=== PATIENT | female | born 1960 | race Caucasian/White ===

== ENCOUNTER 2019-07-03 17:08 | Emergency (ER) | payer OTHER, SELFPAY ==
[2019-07-03 17:09] VITALS: BP 127/72; PULSE 100; RESP 13; TEMP 36.7; O2SAT 96; BMI 25.0
[2019-07-03 17:20] VITALS: O2SAT 96
--- NOTE | 2019-07-03 17:35 | RAD_ITS ---
STUDY: X-RAY CHEST REASON FOR EXAM: Female, 59 years old. Cough and fever. Wheezing. TECHNIQUE: Frontal and lateral views of the chest. COMPARISON: None. FINDINGS: The lungs are clear and expanded. There is no demonstrated pleural abnormality. Normal size heart. Normal mediastinum and glynn. Normal visualized pulmonary arteries. Normal visualized aortic arch and descending thoracic aorta. Normal visualized thoracic spine. Normal visualized ribs, clavicles, and shoulders. There is no demonstrated abnormality of the visualized soft tissue structures of the upper abdomen. RAD/Chest PA and Lateral IMPRESSION: Normal x-ray examination of the chest. Electronically Signed: Joe Altamirano MD at 18:06 EST , Service support ,
--- NOTE | 2019-07-03 17:39 | ED.VIS.GEN ---
History of Present Illness Chief Complaint: Cold Sx Informant: Patient Onset: Days - 7 to 8 days ago Context: Sudden Onset Timing: Continuous Quality: Congestion, cough, wheezing and subjective fever Location: Respiratory Current Severity: Mild Maximum Severity: Moderate Worsened by: Nothing specific Relieved by: Nothing Associated Symptoms: No other symptoms Narrative: Patient was seen yesterday at urgent care. Onset of illness 7 8 days ago. She combines of congestion, cough, wheezing with subjective fever. She is a smoker of 1 pack/day. She continues to smoke. She did receive her influenza vaccine. She denies myalgias arthralgias. She denies pleurisy. She has no other complaints. Prior similar symptoms: Yes Recent Illness/Hospitalization: Yes - Past Medical History (1) Tobacco use Status: Acute Past Medical History - Allergies and Home Meds Allergies/Adverse Reactions: Allergies No Known Allergies Allergy (Verified 07/03/19 17:12) Primary Care Physician: Jd Lockwood DO [Primary Care Provider] - Prior records reviewed: Yes Lives: Alone Smoking Status: Heavy Smoker (>10/day) Alcohol: Rare Drugs: None Review of Systems General: Reports: Fever, Malaise, Subjective. Denies: Chills, Sweats Eyes: Denies: Visual changes - bilaterally, Blurred Vision - bilaterally ENT: Reports: Rhinorrhea. Denies: Bilateral ear pain, Sore throat Cardiovascular: Denies: Chest pain, Palpitations Respiratory: Reports: Dyspnea, Cough. Denies: Sputum, Dyspnea on exertion, Orthopnea, Paroxysmal nocturnal dyspnea Gastrointestinal: Denies: Abdominal pain, Nausea, Vomiting, Diarrhea, Melena, Hematochezia Genitourinary: Denies: Dysuria, Hematuria, Frequency Musculoskeletal: Denies: Myalgias, Arthralgias, Neck pain, Back pain, Swelling, Extremity Pain, -, - Skin: Denies: Rash, Wounds Neurological: Denies: Headache, Weakness, Parasthesia, Numbness, -, - Allergy: Denies: Uticaria, Swelling of the mouth Physical Exam Vital Signs/Narrative: Vital Signs Temp Pulse Resp BP Pulse Ox 07/03/19 17:09 98.0 F 100 13 127/72 H 96 Inital Vital Signs reviewed: Yes General: Well nourished, Well developed, No Acute Distress Head: Normocephalic, Atraumatic Eyes: Perrl, EOMI. Negative for: Pale conjunctiva, Scleral icterus ENT: Moist mucous membranes, No rhinorrhea, TM's clear Neck: Supple, Nontender Cardiovascular: Negative for: Tachycardia Respiratory: No distress, Rales - Rales right lower lobe posteriorly. There is no egophony. Abdomen: Soft, Nontender, Nondistended, Normal bowel sounds Back: Nontender, Normal Inspection Extremities: Nontender, No edema. Negative for: Calf Tenderness Skin: Normal color, No rash Neurological: Alert, Oriented x3, Cranial nerves II-XII grossly intact, Normal Strength, Normal Sensation Psychological: Normal affect, Normal Mood Diagnostic/Tx/Re-eval Chest X-Ray - ED: 2 View, Normal, Heart, Mediastinum, Bony Structures, No Acute Disease, Chronic Changes, - - Tray interpreted by me at 1750. 07/03/19 17:35 Chest PA and Lateral [RAD] Stat - Rhythm Strip Rhythm Strip: Sinus Rhythm Rate: 90 Ectopy: None - Medical Decision Making Since patient has unilateral symptoms is a smoker will obtain chest x-ray to look for evidence of pneumonia versus bronchitis. Chest x-ray revealed no evidence of pneumonia. Patient was instructed to take the prednisone she was prescribed, continue using the inhaler and her antibiotic was changed from azithromycin to doxycycline ED Disposition - Plan for ED Patient: Diagnosis: Bronchitis with bronchospasm Instructions: BRONCHITIS with Wheezing (Adult) Prescriptions: Doxycycline [Vibramycin] 100 mg PO BID #14 cap Prescription Printed Referrals: Jd Lockwood DO [Primary Care Provider] - 1 Week if not improving Additional Instructions: Discontinue taking the azithromycin. It is in your best interest to stop smoking. Because you are a smoker you may have a cough for 4 weeks. Take the doxycycline until gone.
[2019-07-03 18:02] VITALS: PULSE 94; RESP 17; O2SAT 96
== END 2019-07-03 18:03 | disposition home or self-care (01) ==
LOC: ED 17:50
PROVIDERS: Emergency Provider Emergency Medicine; Family Provider Student in an Organized Health Care Education/Training Program; PCP Student in an Organized Health Care Education/Training Program
DX: J40 Bronchitis, not specified as acute or chronic (principal); F17.200 Nicotine dependence, unspecified, uncomplicated
CPT/HCPCS: 71046; 99282

== ENCOUNTER 2025-04-15 08:49 | Day surgery (SDC) | payer OTHER, SELFPAY ==
--- NOTE | 2025-04-11 06:39 | EKG12_ITS ---
Test Reason : PREOP Blood Pressure : */* mmHG Vent. Rate : 64 BPM Atrial Rate : 64 BPM P-R Int : 142 ms QRS Dur : 88 ms QT Int : 408 ms P-R-T Axes : 52 32 57 degrees QTcB Int : 420 ms Normal sinus rhythm Normal ECG Confirmed by WAYNE BRIGGS, GAYLE ([id number]), international editorial producer JEN MOORE ([id number]) on 04/12/2025 6:08:06 AM Referred By: Kate Buchanan Confirmed By: GAYLE BLACK MD
--- NOTE | 2025-04-12 13:41 | HP.PCM_ITS ---
History and Physical Date of Admission: 04/15/25 HPI: The patient is a 64 year old female presenting for pre-operative visit. She is scheduled for laparoscopic BSO, EUA, pelvic washings, for pelvic pain right ovarian cyst and left paraovarian cyst on 04/15/25. Procedure discussed along with risks, benefits and complications. Other alternatives discussed for management. Consent form signed? Yes. ? ? 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 ? ? PAST SURGICAL HISTORY PAST SURGICAL HISTORYProcedureLateralityDate?COL1A1/COL1A2 DNA SEQUENCING???COLONOSCOPY FLX DX W/COLLJ SPEC WHEN PFRMD?07/19/2020?Colonoscopy ?ESOPHAGOGASTRODUODENOSCOPY TRANSORAL DIAGNOSTIC?07/19/2020?EGD?PAST SURGICAL HISTORY OF???heart cath?REPAIR OF FEMUR [id number]?secondary to OI ?TONSILLECTOMY PRIMARY/SECONDARY <AGE 12???Tonsillectomy ? ? ? CURRENT MEDICATIONS Current Outpatient MedicationsMedicationSigDispenseRefill?alendronate (FOSAMAX) 70 mg tabletTake 1 tablet by mouth one time a week. in the AM with glass of water on empty stomach. Do not take anything else by mouth or lie down for 30 min12 tablet3?meloxicam (MOBIC) 7.5 mg tabletTAKE 1 TABLET BY MOUTH EVERY DAY30 tablet2?desonide (DESOWEN) 0.05 % ointmentapply to red and rough areas twice daily for 2 weeks, daily for 2 weeks, then twice weekly to eczema prone areas for maintenance.60 g0?metoprolol succinate ER (TOPROL XL) 25 mg 24 hr tabletTake 1 tablet by mouth once daily.90 tablet3?No current facility-administered m edications for this visit. ? ? ALLERGIES: Patient has no known allergies. ? PERSONAL HISTORY: [SOCIAL HISTORY] [SOCIAL HISTORY] Social History Tobacco Use ? Smoking status: Former ? ? Current packs/day: 1.00 ? ? Average packs/day: 1 pack/day for 20.0 years (20.0 ttl pk-yrs) ? ? Types: Cigarettes ? Smokeless tobacco: Never ? Tobacco comments: ? ? Quit smoking in october 2019 Vaping Use ? Vaping status: Never Used Substance Use Topics ? Alcohol use: Not Currently ? Drug use: Never ? FAMILY HISTORY: FAMILY HISTORY FAMILY HISTORY ProblemRelationAge of Onset?CancerMother?? CLL ?HypertensionMother??HyperlipidemiaMother??CancerFather?? Lung ?HypertensionFather??HypertensionSister??Rheumatologic diseaseSister?? RA ?CancerMaternal Grandmother?? Lymphoma?other (Other)Son?? OI?other (Other)Son?? OI ? ? REVIEW OF SYMPTOMS: GENERAL: denies fevers or chills ENDOCRINOLOGY: has not been on steroids Cardiology : denies palpitations or chest pain Respiratory: denies SOB or cough Hematology: denies history of prolonged bleeding or easy bruising or VTE Allergy: Denies history of personal or family history of allergy to anesthesia ? PHYSICAL EXAMINATION: ? VITALS: Blood pressure 108/76, height 142.2 cm (4' 8), weight 58.1 kg (128 lb). ? GENERAL: The patient is well nourished, well hydrated in no acute distress. , The patient is oriented to time, place, and person. NECK: Supple. No lynphadenopathy, normal thyroid, no thyromegaly. LUNGS: Clear to auscultation bilaterally. no wheezes, rhonchi or rales HEART: Regular rate and rhythm, Normal heart sounds, and No murmurs or gallops ? ? IMPRESSION: right ovarian cyst, pelvic pain, left paraovarian cyst ? PLAN: The risks/benefits/alternatives and personal involved for the planned laparosocpic BSO, EUA, pelvic washings were reviewed with the patient. Her questions were answered to her satisfaction and she desires to proceed. Consent was signed. I reviewed with her postop instructions and expectations. ? ? I have reviewed and updated past medical and surgical history, medications and allergies Assessment & Plan Assessment/Plan (1) Pelvic pain in female: (2) Right ovarian cyst: (3) Para-ovarian cyst:
--- NOTE | 2025-04-13 16:32 | PAT.ANESEVAL ---
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 When Was Last Pacemaker Check QUESTION #4 FULL TEXT: You/Your Family Experience fever (hyperthermia) with Anesthesia Last Oral Intake Last Oral intake: Last Oral Intake NPO since Meds taken in AM with sips of water? Meds patient instructed to take am of surgery PONV PONV - molder machine tender: PONV - molder machine tender Female Yes 04/08/25 13:50 HX of Motion Sickness No 04/08/25 13:50 HX of N/V After Surgery No 04/08/25 13:50 Non-Smoker Yes 04/08/25 13:50 Duration of Surgery greater No 04/08/25 13:50 than 60 minutes Number of Risk Factors 2 04/08/25 13:50 PONV Score Moderate Risk 04/08/25 13:50 Respiratory Assessment Respiratory Assessment - molder machine tender: Respiratory Tract Infection Hx - molder machine tender Hx Respiratory Tract Infection No 04/08/25 13:50 STOP Sleep Apnea STOP Sleep Apnea - molder machine tender: STOP Sleep Apnea - molder machine tender Hx Hypertension No 04/08/25 13:50 Hx Sleep Apnea No 04/08/25 13:50 CPAP BIPAP Do you snore loudly (louder No 04/08/25 13:50 than talking or can be heard Do you often feel tired/ No 04/08/25 13:50 fatigued/ sleepy during daytime? Has anyone observed you stop No 04/08/25 13:50 breathing during sleep? STOP Results Negative 04/08/25 13:50 QUESTION #5 FULL TEXT : Do you snore loudly (louder than talking or can be heard through closed doors)? 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 Specify any problems Hx of Preganancy in last 3 N/A 04/08/25 13:50 Months Nurse Filling Out Transfusion NBUCHER 04/08/25 13:50 & Questions: Date: 04/08/25 04/08/25 13:50 Time: 13:51 04/08/25 13:50 Patient unable to answer at this time (ie. confused, unrespo /Reproduction History /Reproductive History - molder machine tender: /Reproductive Hx- molder machine tender Hx Now No 04/08/25 13:50 Gestational Age (in weeks): EDC: Hx Hx Para Hx Section SAB No 04/08/25 13:50 [facility] Medical History (Updated 04/12/25 @ 13:[address] Kate Buchanan MD) Wears glasses Gastric reflux Former smoker Cardiology follow-up encounter History of echocardiogram History of stress test History of supraventricular tachycardia History of femur fracture Home Medications ?Medication ?Instructions ?Recorded ?Last Taken ?Type calcium carbonate-vitamin D3 500 1 cap PO DAILY 04/08/25 Unknown History mg (1,250 mg)-50 unit capsule Allergy/AdvReac Type Severity Reaction Status Date / Time No Known Allergies Allergy Verified 04/08/25 13:49 Surgical History History of esophagogastroduodenoscopy (EGD) History of colonoscopy History of tonsillectomy Social History Smoking Status: Former smoker Audit: Pertinent Findings Pertinent Findings EKG Perinent findings: April 11, 2025. Normal sinus rhythm. Stress test pertinent findings: 01/08/2021. Sustained V. tach noted during stress. Echo (EF%) pertinent findings: 01/08/2021. EF is 60%. Heart catheterization pertinent findings: 01/08/2021. Angiographically normal coronary arteries. Normal left ventricular filling pressures. Consult pertinent findings: 01/09/2021. Dr. Springer. 1. Sustained V. tach during stress test. This is consistent with right ventricular outflow tract ventricular tachycardia. Patient is being placed on beta-ramiro. It is recommended she do a treadmill stress test next week on the beta-ramiro. If she is free of arrhythmias on exertion then she is recommended to do a cardiac MRI to rule out arrhythmogenic right ventricular cardiomyopathy. Blood pressures are normal. Plan to discharge home on Toprol-XL. 2. Previous syncope-1 occurrence in the 1980s. No recurrence. Recommendation Anesthesia Recommendation Anesthesia recommendation: F/U recommended (Last cardiac recommendation was for patient to get a stress test on beta-blockers. Did she ever get this done and can we get the results?)
--- NOTE | 2025-04-14 10:20 | PAT.ANE_ITS ---
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 When Was Last Pacemaker Check QUESTION #4 FULL TEXT: You/Your Family Experience fever (hyperthermia) with Anesthesia Last Oral Intake Last Oral intake: Last Oral Intake NPO since Meds taken in AM with sips of water? Meds patient instructed to take am of surgery PONV PONV - financial sales professional: PONV - financial sales professional Female Yes 04/08/25 13:50 HX of Motion Sickness No 04/08/25 13:50 HX of N/V After Surgery No 04/08/25 13:50 Non-Smoker Yes 04/08/25 13:50 Duration of Surgery greater No 04/08/25 13:50 than 60 minutes Number of Risk Factors 2 04/08/25 13:50 PONV Score Moderate Risk 04/08/25 13:50 Respiratory Assessment Respiratory Assessment - financial sales professional: Respiratory Tract Infection Hx - financial sales professional Hx Respiratory Tract Infection No 04/08/25 13:50 STOP Sleep Apnea STOP Sleep Apnea - financial sales professional: STOP Sleep Apnea - financial sales professional Hx Hypertension No 04/08/25 13:50 Hx Sleep Apnea No 04/08/25 13:50 CPAP BIPAP Do you snore loudly (louder No 04/08/25 13:50 than talking or can be heard Do you often feel tired/ No 04/08/25 13:50 fatigued/ sleepy during daytime? Has anyone observed you stop No 04/08/25 13:50 breathing during sleep? STOP Results Negative 04/08/25 13:50 QUESTION #5 FULL TEXT : Do you snore loudly (louder than talking or can be heard through closed doors)? 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 Specify any problems Hx of Preganancy in last 3 N/A 04/08/25 13:50 Months Nurse Filling Out Transfusion NBUCHER 04/08/25 13:50 & Questions: Date: 04/08/25 04/08/25 13:50 Time: 13:51 04/08/25 13:50 Patient unable to answer at this time (ie. confused, unrespo /Reproduction History /Reproductive History - financial sales professional: /Reproductive Hx- financial sales professional Hx Now No 04/08/25 13:50 Gestational Age (in weeks): EDC: Hx Hx Para Hx Section SAB No 04/08/25 13:50 [facility] Medical History (Updated 04/12/25 @ 13:[address] Kate Buchanan MD) Wears glasses Gastric reflux Former smoker Cardiology follow-up encounter History of echocardiogram History of stress test History of supraventricular tachycardia History of femur fracture Home Medications ?Medication ?Instructions ?Recorded ?Last Taken ?Type calcium carbonate-vitamin D3 500 1 cap PO DAILY Unknown History mg (1,250 mg)-50 unit capsule Allergy/AdvReac Type Severity Reaction Status Date / Time No Known Allergies Allergy Verified 04/08/25 13:49 Surgical History History of esophagogastroduodenoscopy (EGD) History of colonoscopy History of tonsillectomy Social History Smoking Status: Former smoker Audit: Pertinent Findings HISTORY of Pertinent Findings History of Pertinent Findings: EKG Pertinent Findings EKG Perinent findings April 11, 2025. Normal 04/13/25 16:33 sinus rhythm. Stress Test Pertinent Findings Stress test pertinent findings 01/08/2021. Sustained V. 04/13/25 16:42 tach noted during stress. Echo Pertinent Findings Echo (EF%) pertinent findings 01/08/2021. EF is 60%. 04/13/25 16:42 Heart Catheterization Pertinent Findings Heart catheterization 01/08/2021. Angiographically 04/13/25 16:48 pertinent findings normal coronary arteries. Normal left ventricular filling pressures. Consult Pertinent Findings Consult pertinent findings 01/09/2021. Dr. Springer. 04/13/25 16:54 1. Sustained V. tach during stress test. This is consistent with right ventricular outflow tract ventricular tachycardia. Patient is being placed on beta-ramiro. It is recommended she do a treadmill stress test next week on the beta-ramiro. If she is free of arrhythmias on exertion then she is recommended to do a cardiac MRI to rule out arrhythmogenic right ventricular cardiomyopathy. Blood pressures are normal. Plan to discharge home on Toprol-XL. 2. Previous syncope-1 occurrence in the . No recurrence. Pertinent Findings Stress test pertinent findings: Patient was seen at [facility] after her episode of V. tach and it was recommended that she not get a stress test because it would not show further findings. She has good functional capacity and she is scheduled for a low to medium risk procedure. Recommendation Anesthesia Recommendation Anesthesia recommendation: OPTIMIZED for anesthesia
[2025-04-15] VITALS (12 sets, daily range): BP systolic 95–151; BP diastolic 54–81; PULSE 60–78; RESP 16–18; TEMP 36.1–36.8; O2SAT 93–100; BMI 27.1
--- NOTE | 2025-04-15 | FLU_PTH ---
PATIENT: ADELINA RIGGINS LOC: [facility] [place] U#:[id number] AGE/SX: 64/F ROOM: RE04/15/[address]: Dr. Kate Buchanan MD : 1960 BED: DIS: 04/15/2025 SPEC #: [id number] RECD: 04/15/25 11:04 STATUS: FAB REDinorah #: [id number] APPLE: 04/15/25 00:[address]: Kate Buchanan DEPT: CYTOLOGY RECD BY: Danny Gagnon ENTERED: 04/15/25 13:47 SP TYPE: Fluid OTHR DR: Dr. Jd Lockwood, DO Tissues: A - Pelvis, NOS Procedures: Immunohistochemical Stains Special Stain Group II Surgery Specimen Level IV Cytospin Fluid IHC Stain ADDITIONAL HEADER OPERATION: Not noted PRE-OP DIAGNOSIS: TISSUE SUBMITTED: A- Pelvic washings for cytology DIAGNOSIS CYTOLOGY A. Pelvic washing (cytospin, cellblock): - No malignant cells identified. - Macrophages/histiocytes present (CD68+). - IHC for calretinin and CAM5.2 support the diagnosis. CYTOLOGY STUDY Slides are reviewed. ?All matched controls reacted appropriately. These tests were developed and their performance characteristics determined by [facility]. They may not have been cleared or approved by the U.S. Food and Drug Administration. The FDA has determined that such clearance or approval is not necessary.? The above immunohistochemical?markers and/or special stains have been reviewed by the Pathologist. CYTOLOGY GROSS A. Received is 50 ml of [id number] fluid labeled with the patient's name and and designated per the requisition as Pelvic washings. Submitted for cytology and cell block preparation. Mr 04/15/2025 CPT: 70332 ,[id number]
[2025-04-15] MEDS: Lactated Ringers 1,000 ML 15 ML IV (09:24)
--- NOTE | 2025-04-15 09:51 | PCM.PRE.AN2 ---
ASA Classification* ASA Classification ASA Classification: 2 Assessment & Plan Anesthesia* Anesthesia Assessment Anesthesia Assessment: Discussed sedation and/or anesthesia options, risks, benefits, and alternatives with patient/parents/legal guardian/POA. Questions invited. The patient/parents/legal guardian/POA seems to understand and agrees to proceed with anesthesia plan. Reviewed the physical assessment, medical history, allergy history and patient home medications list prior to surgery/procedure/anesthetic and documented any changes. Performed airway and anesthesia risk assessments. Anesthesia Type Anesthesia Type: General History Source History Obtained from:: Patient and Chart Anesthesia Focused Assessment* Temperature: 98.3 F Pulse Rate: 70 Blood Pressure: 114/74 Respiratory Rate: 16 Pulse Ox: 100 Oxygen Delivery Method: Room Air Airway Assessment Mouth opens: >3 cm Mallampati Score: I Teeth Condition: Caps/Crowns (Patient has a crown left lower molar. 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 When Was Last Pacemaker Check QUESTION #4 FULL TEXT: You/Your Family Experience fever (hyperthermia) with Anesthesia Last Oral Intake Last Oral intake: Last Oral Intake NPO since 18:00 04/15/25 09:19 Meds taken in AM with sips of No 04/15/25 09:19 water? Meds patient instructed to take am of surgery PONV PONV - service unit operator oil well: PONV - service unit operator oil well Female Yes 04/08/25 13:50 HX of Motion Sickness No 04/08/25 13:50 HX of N/V After Surgery No 04/08/25 13:50 Non-Smoker Yes 04/08/25 13:50 Duration of Surgery greater No 04/08/25 13:50 than 60 minutes Number of Risk Factors 2 04/08/25 13:50 PONV Score Moderate Risk 04/08/25 13:50 Height & Weight Height & Weight: Anesthesia: Height & Weight Height 4 ft 9 in 04/15/25 09:19 Weight: 57 kg 04/15/25 09:19 Body Mass Index (BMI) 27.1 04/15/25 09:19 Respiratory Assessment Respiratory Assessment - service unit operator oil well: Respiratory Tract Infection Hx - service unit operator oil well Hx Respiratory Tract Infection No 04/08/25 13:50 STOP Sleep Apnea STOP Sleep Apnea - service unit operator oil well: STOP Sleep Apnea - service unit operator oil well Hx Hypertension No 04/08/25 13:50 Hx Sleep Apnea No 04/08/25 13:50 CPAP BIPAP Do you snore loudly (louder No 04/08/25 13:50 than talking or can be heard Do you often feel tired/ No 04/08/25 13:50 fatigued/ sleepy during daytime? Has anyone observed you stop No 04/08/25 13:50 breathing during sleep? STOP Results Negative 04/08/25 13:50 QUESTION #5 FULL TEXT : Do you snore loudly (louder than talking or can be heard through closed doors)? Tobacco Use History Tobacco Use History - service unit operator oil well: Tobacco Use History - service unit operator oil well Tobacco Use Smoking Status Former smoker 04/08/25 13:50 Hx Tobacco Use No 04/08/25 13:50 Years Smoking Packs Smoked per Day Smoking Cessation Date was No - quit smoking greater 04/08/25 13:50 within the last 15 years than 15 years ago Hx Smoking Cessation Date 08/25/19 04/08/25 13:50 Hx Smoking Cessation Counseling Hematologic Medial History Hematologic Hx - service unit operator oil well: Hematologic Medical Hx - possum trapper Hx of Blood Transfusion No 04/08/25 13:50 Hx of Transfusion in last 3 No 04/08/25 13:50 Months Date of Last Transfusion (if within last 3 months) Ever experience any problems No 04/08/25 13:50 with transfusion(s)? Specify any problems Hx of Preganancy in last 3 N/A 04/08/25 13:50 Months Nurse Filling Out Transfusion NBUCHER 04/08/25 13:50 & Questions: Date: 04/08/25 04/08/25 13:50 Time: 13:51 04/08/25 13:50 Patient unable to answer at this time (ie. confused, unrespo /Reproduction History /Reproductive History - service unit operator oil well: /Reproductive Hx- service unit operator oil well Hx Now No 04/08/25 13:50 Gestational Age (in weeks): EDC: Hx Hx Para Hx Section SAB No 04/08/25 13:50 Active Medications Active Medications: Current Medications Generic Name Dose Route Start Last Admin Trade Name Freq PRN Reason Stop Dose Admin Lactated Ringer's 1,000 mls @ 15 mls/hr 04/15/25 09:00 04/15/25 09:24 IV 15 mls/hr .Q48H LUIS ALBERTO Administration PFSH Medical History Wears glasses Gastric reflux Former smoker Cardiology follow-up encounter History of echocardiogram History of stress test History of supraventricular tachycardia History of femur fracture Home Medications ?Medication ?Instructions ?Recorded ?Last Taken ?Type calcium carbonate-vitamin D3 500 1 cap PO DAILY 04/08/25 Unknown History mg (1,250 mg)-50 unit capsule metoprolol succinate 25 mg 25 mg PO DAILY 04/15/25 04/14/25 16:00 History tablet,extended release 24 hr Allergy/AdvReac Type Severity Reaction Status Date / Time No Known Allergies Allergy Verified 04/15/25 09:18 Surgical History History of esophagogastroduodenoscopy (EGD) History of colonoscopy History of tonsillectomy Social History Smoking Status: Former smoker Review of Systems (Anesthesia) ROS Narrative System reviewed and no additional complaints, except as documented.
--- NOTE | 2025-04-15 10:13 | PCM.DC ---
Discharge Instructions DC O2, CPAP, BIPAP needs Home O2 Discharge instructions: No Dressing / Incision May shower in (days): 1 May resume sexual activity in: 1-2 weeks Lifting Restrictions: 15 lbs x 2 weeks Additional Activity Instructions:: Ambulate often the next week after surgery. You can drive when you feel up to it and are not on pain medication. Dressing / Incision Call your doctor if your incision/area has: Continuous Slow Oozing, Sudden Increased Bleeding, Increased Pain/ Swelling, Increased Redness and Foul Smelling Discharge Call your doctor if you observe: Fever of 101 or Higher Cleanse incision/area with: Soap & Water (Your incisions have skin glue, it can get wet. Please let if on for 10-14 days or until it falls off. ) Follow Up Care Please Follow Up With: Kate Buchanan MD When: Call [phone] for follow-up appointment. Test Results: Test results from this visit will be discussed in further detail at your follow-up appointment, if applicable. Discharge Plan Admission Primary Reason for Your Visit: Laparoscopic bilateral tube and ovary removal Attending Provider: Kate Buchanan Primary Care Provider: Jd Lockwood Instructions Print Language: Slovenian Discharge Orders/Prescriptions Prescriptions: New oxycodone 5 mg tablet 5 mg PO Q8H PRN (Reason: severe pain) 5 Days Qty: 6 0RF Continued calcium carbonate-vitamin D3 500 mg(1,250mg) -50 unit capsule 1 cap PO DAILY metoprolol succinate 25 mg tablet extended release 24 hr 25 mg PO DAILY Referrals / Follow Up: Jd Lockwood DO [Primary Care Provider] - Disposition Disposition (needs filled in before D/C Order can be placed): Home, Self Care
--- NOTE | 2025-04-15 10:30 | OV_PTH ---
PATIENT: ADELINA RIGGINS [place] [facility] [id number] AGE/SX: 64/F ROOM: RE04/15/[address]: Dr. Kate Buchanan MD : 1960 BED: DIS: 04/15/2025 SPEC #: [id number] RECD: 04/15/25 12:30 STATUS: FAB REDinorah #: [id number] APPLE: 04/15/25 10:[address]: Kate Buchanan DEPT: SURGICAL PATHOLOGY RECD BY: Danny Gagnon ENTERED: 04/15/25 12:43 SP TYPE: OVARY OTHR DR: Dr. Jd Lockwood, Tissues: A - Right ovary B - Left ovary Procedures: Surgery Specimen Level V HEADER OPERATION: Laparoscopic bilateral salpingo-oopherectomy, pelvic washings PRE-OP DIAGNOSIS: Pelvic pain in female, right ovarian cyst, para-ovarian cyst TISSUE SUBMITTED: A- Right ovary and tube, B- Left ovary and tube, paratubal cyst MICROSCOPIC DIAGNOSIS A. Right ovary and fallopian tube, salpingo-oophorectomy: - Ovary with serous cystadenoma and benign fallopian tube - see Comment. B. 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 - Benign fallopian tube. COMMENT Selected slides/images were reviewed in intradepartmental consultation by Dr Charlie Lynn (FAMILY DEVELOPMENT SPECIALIST pathology division, [facility]). MICROSCOPIC DESCRIPTION Slides are reviewed. GROSS DESCRIPTION Received in 2 formalin containers labeled with the patient's name and date of . Designated as: A. Right ovary and tube is a 4.5 x 0.3 cm han-pink disrupted fallopian tube, devoid of fimbria and an 8 g, 3.4 x 3.0 x 2.7 cm predominantly cystic, apparent ovary. Sectioning reveals clear to straw-colored serous fluid within the cysts and minimal, possible ovarian parenchyma. Also received within the container is a 2.0 x 1.4 x 0.6 cm apparent cyst wall. Gas Welding Equipment Mechanic sections are submitted in 3 cassettes as follows: A1: Fallopian tubeA2: Possible ovary with cystA3: Possible ovary with cyst, and separate apparent cyst wall B. Left ovary and tube, paratubal cyst is an 18.5 cm intact cyst with possible ovary, 3.8 x 3.2 x 2.9 cm with an attached portion of han-pink fallopian tube devoid of fimbria, 3.6 x 0.3 cm. Sectioning reveals clear serous fluid within the cyst and focally fibrotic cyst wall; minimal, possible ovarian parenchyma is identified. Also received within the container is a separate, intact cyst blood-tinged serous fluid, 1.4 x 1.3 x 0.7 cm. Gas Welding Equipment Mechanic sections are submitted in 3 cassettes as follows:B1: Fallopian tubeB2: Possible ovary and cystB3: Separate cyst with hemorrhagic serous fluid DE 04/15/2025 A. The remainder of the specimen is entirely submitted in cassettes A4-A8, following histopathologic review.B. The remainder of the specimen is entirely submitted in cassettes B4-B9, following histopathologic review. DE 04/26/2025 CPT:[id number]
[2025-04-15] MEDS: Lidocaine 1% (5 ml sdv) 5 ML Vial 3.5 ML IV (10:42)
[2025-04-15] MEDS: fentaNYL 100 MCG/2 ML Ampul IV (11:02)
--- NOTE | 2025-04-15 11:57 | OP.PCM_ITS ---
Problems Associated Problem List Diagnoses (1) Para-ovarian cyst: (2) Right ovarian cyst: (3) Pelvic pain in female: Operative Report (Standard) Operative Information Date of Procedure: 04/15/25 Pre-Operative Diagnosis: pelvic pain, ovarian cyst, paratubal cyst Post-Operative Diagnosis: same Surgery/Procedure Performed: Laparoscopic bilateral salpingoophorectomy with removal of paratubal cyst and pelvic washings customs and border protection inspector: Yes Director Shopper Marketing: Emerson Mahoney Tasks completed by medical billing assistant: Closing, Trocar and Retracting Additional salon assistant?: No Type of Anesthesia: General RN Documented Start/Stop Times: Operation Date: 04/15/25 10:30 Case Time Into Pre-Op 04/15/25 08:57 Out of Pre-Op 04/15/25 10:32 Anesthesia Start 04/15/25 10:35 Into Room 04/15/25 10:35 Procedure Start 04/15/25 10:57 Procedure Start Time: 10:57 Procedure Stop Time: 11:56 Select all DRAINS/GRAFTS/IMPLANTS that apply: None Special Medications: none Estimated Blood Loss: 10 Fluids Replaced: 800 cc LR Specimen collected: Yes Description of specimen(s) removed: pelvic washings, willis lteral tubes and ovaries, paratubal cyst left side Description of surgery: The patient was taken to the operating room where she was prepped and draped in the dorsolithotomy position. A weighted speculum was placed in the vagina and the anterior lip of the cervix was grasped with a tenaculum. The Merlyn uterine manipulator was placed and the remainder of the instruments were removed from the vagina. Attention was turned to the abdomen. All port sites were infiltrated with 0.5% Marcaine before skin incisions were made. A 5 mm intraumbilical incision was m zackary. The anterior abdominal wall was tented up with 2 towel clamps while a 5 mm blade less trocar and sleeve were directly inserted. Intraperitoneal placement was confirmed with the laparoscope. The pneumoperitoneum was created and the underlying abdominal contents were intact. The patient was placed in Trendelenburg. 5mm right and left lower quadrant ports were placed under direct visualization lateral to the inferior epigastric vessels. The bowel was swept away and the above findings were noted. Both ureters right identified and seen peristalsing below the infundibulopelvic ligaments. The right infundibulopelvic ligament was clamped, sealed and transected with the LigaSure device. The antimesenteric portions of the tube were clamped, sealed and transected. The utero-ovarian ligaments were clamped sealed and transected with the LigaSure device. Some of the filmy adhesions were removed with blunt dissection. On the left side I had to take down some of the adhesions of the ovary to the pelvic sidewall to free it up and free the tube out. The infundibulopelvic ligament was then clamped sealed and transected with the LigaSure device. The utero-ovarian ligament was clamped sealed and transected with the LigaSure device as was the rest of the antimesenteric portion of the tube. The paratubal cyst was noted to be adhered somewhat to the pelvic sidewall and this was taken down with the LigaSure device and then it was peeled off the epiploica with blunt dissection. All the pedicles were hemostatic. The specimens were placed in separate 5 mm bags and removed through the umbilical incision which was stretched. The pedicles were again examined and found to be hemostatic. Hemablast was placed over the pedicles The the umbilical port fascia was closed with 0 Vicryl suture with a [id number]. The lateral ports were removed under direct visualization and no active bleeding was noted. The pneumoperitoneum was released. The skin incisions were closed with Monocryl suture in a subcuticular fashion and skin glue . The vaginal instruments were removed and the vaginal sweep was completed by me. The procedure was performed by me with assistance other than as dictated above. All sponge and needle counts were correct and the patient was taken to the recovery room in stable condition. Surgical Findings: left ovarian cyst and paratubal cyst, atrophic right ovary, large anterior lateral fibroid off the left side of the uterus, some adhesions of ovaries and tubes to pelvic sidewalls, the paratubal cysts off left adhered slightly to epiploioca of the rectosigmoid colon cysts Complications Complications: No Admit VTE Documentation VTE Present on Admission: No VTE Mechan Device Prophylaxis: SCD's VTE Pharm Prophylaxis ordered?: No
--- NOTE | 2025-04-15 12:04 | PCM.POST.ANE ---
Anesthesia: Postop Eval I Current Vital Signs Temperature: 97.1 F Pulse Rate: 73 Blood Pressure: 151/81 Respiratory Rate: 18 Pulse Ox: 100 Assessment Airway patent: Yes Spontaneous unlabored respirations: Yes nausea: No Vomiting: No Anesthesia Complication: No Fluid Hydration Crystalloid volume administer (ml): 800 Total IV fluid infused: 800 Progress Note Anesthesia document: Postop Eval 1 completed: Yes
[2025-04-15 12:30] LABS: Cytology, Body Fluid / CSF SEE PATHOLOGY REPORT
--- NOTE | 2025-04-15 16:14 | POSTOPAN2_ITS ---
Anesthesia Postop Eval I Sum Postop Eval Completion status Anesthesia document: Postop Eval 1 completed: Yes Anesthesia Postop Eval I Summary Anesthesia Postop Eval I Summary: Anesthesia Postop Eval I: Assessment Summary Airway patent Yes 04/15/25 12:04 ELECTRICAL PARTS RECONDITIONER.CSIR Spontaneous unlabored Yes 04/15/25 12:04 ELECTRICAL PARTS RECONDITIONER.CSIR respirations Mental status nausea No 04/15/25 12:04 ELECTRICAL PARTS RECONDITIONER.CSIR Vomiting No 04/15/25 12:04 ELECTRICAL PARTS RECONDITIONER.CSIR Anesthesia Postop Eval I: Fluid Summary Crystalloid volume administer 800 04/15/25 12:04 ELECTRICAL PARTS RECONDITIONER.CSIR (ml) Colloids volume administered ( ml) Blood Product volume administered (ml) Total IV fluid infused 800 04/15/25 12:04 ELECTRICAL PARTS RECONDITIONER.CSIR Anesthesia Postop Eval I: Summary Notes Anesthesia Complication No 04/15/25 12:04 ELECTRICAL PARTS RECONDITIONER.CSIR Anesthesia Complication Comment: Post-operative progress note Anesthesia: Postop Eval II Evaluation Mental status: Awake and Calm Pain Level: 2 nausea: No Vomiting: No Complications Anesthesia Complication: No
--- NOTE | 2025-04-15 16:14 | PCM.POSTANE2 ---
Anesthesia Postop Eval I Sum Postop Eval Completion status Anesthesia document: Postop Eval 1 completed: Yes Anesthesia Postop Eval I Summary Anesthesia Postop Eval I Summary: Anesthesia Postop Eval I: Assessment Summary Airway patent Yes 04/15/25 12:04 SEMICONDUCTOR TECHNICIAN.CSIR Spontaneous unlabored Yes 04/15/25 12:04 SEMICONDUCTOR TECHNICIAN.CSIR respirations Mental status nausea No 04/15/25 12:04 SEMICONDUCTOR TECHNICIAN.CSIR Vomiting No 04/15/25 12:04 SEMICONDUCTOR TECHNICIAN.CSIR Anesthesia Postop Eval I: Fluid Summary Crystalloid volume administer 800 04/15/25 12:04 SEMICONDUCTOR TECHNICIAN.CSIR (ml) Colloids volume administered ( ml) Blood Product volume administered (ml) Total IV fluid infused 800 04/15/25 12:04 SEMICONDUCTOR TECHNICIAN.CSIR Anesthesia Postop Eval I: Summary Notes Anesthesia Complication No 04/15/25 12:04 SEMICONDUCTOR TECHNICIAN.CSIR Anesthesia Complication Comment: Post-operative progress note Anesthesia: Postop Eval II Evaluation Mental status: Awake and Calm Pain Level: 2 nausea: No Vomiting: No Complications Anesthesia Complication: No
== END 2025-04-15 14:43 | disposition home or self-care (01) ==
LOC: SDC 08:51 → AC 08:51
PROVIDERS: PCP Student in an Organized Health Care Education/Training Program; Referring Provider Obstetrics & Gynecology; Visit Provider Obstetrics & Gynecology
PROC: (CPT 58661; principal; 2025-04-15 10:15)
DX: R10.2 Pelvic and perineal pain (principal); D25.9 Leiomyoma of uterus, unspecified; N83.202 Unspecified ovarian cyst, left side; N83.201 Unspecified ovarian cyst, right side; N73.6 Female pelvic peritoneal adhesions (postinfective); N83.8 Other noninflammatory disorders of ovary, fallopian tube and broad ligament; Z87.891 Personal history of nicotine dependence
CPT/HCPCS: 58661; 58662; 00840; 88108; 88305; 88313; 88341; 88342; 93005; J2405